=== PATIENT | female | born 1950 | race Native Hawaiian/Other Pacific Islander ===

== ENCOUNTER 2017-12-10 13:16 | Outpatient (CLI) | payer OTHER ==
[2017-12-10 13:49] LABS: POTASSIUM 3.6 mmol/L (3.6-5.2); SODIUM 140 mmol/L (136-145)
== END 2017-12-10 20:49 | disposition home or self-care (01) ==
LOC: LABW 13:16
PROVIDERS: Nurse Practitioner
DX: R07.89 Other chest pain (principal); Z79.01 Long term (current) use of anticoagulants; Z51.81 Encounter for therapeutic drug level monitoring; I48.91 Unspecified atrial fibrillation
CPT/HCPCS: 36415; 80053; 82550; 83880; 84484; 85610; 85651; 86140

== ENCOUNTER 2023-02-10 08:35 | Emergency (ER) | payer OTHER ==
[~2023-02-10] VITALS: Ht 162.6 cm; Wt 90.7 kg
[2023-02-10 08:40] VITALS: TEMP 99
[2023-02-10 09:33] LABS: PLATELET COUNT 239 K/uL (152-353)
[2023-02-10 09:50] LABS: POTASSIUM 3.3 mmol/L (3.6-5.2)
[2023-02-10 10:04] VITALS: BP 139/71
== END 2023-02-10 10:04 | disposition home or self-care (01) ==
LOC: ED 08:35
PROVIDERS: Family Medicine
DX: J06.9 Acute upper respiratory infection, unspecified (principal); H60.90 Unspecified otitis externa, unspecified ear
CPT/HCPCS: 80048; 85027; 87502; 87635; 87651; 96361; 96374; 96375; 99284; J1100; J1885; U0003

== ENCOUNTER 2023-09-11 14:40 | Outpatient (CLI) | payer OTHER | END 2023-09-11 19:31 | disposition home or self-care (01) | LOC: MRI 14:40 | PROVIDERS: ATTEND Orthopaedic Surgery | DX: M17.12 Unilateral primary osteoarthritis, left knee (principal) ==